=== PATIENT | male | born 1970 | race Caucasian/White ===

== ENCOUNTER → 2019-06-04 | Outpatient (CLI) | payer BC ==
--- NOTE | 2019-06-04 10:11 | CT ---
EXAMINATION TYPE: CT chest wo con DATE OF EXAM: 06/04/2019 COMPARISON: NONE HISTORY: Screen lung cancer, COPD, history of asbestos exposure. CT DLP: 693 mGycm. Automated Exposure Control for Dose Reduction was Utilized. TECHNIQUE: CT scan of the thorax is performed without IV contrast. FINDINGS: LUNGS: Mild to moderate biapical pleural/parenchymal scarring with occasional apical bleb. No suspici ous greater than 4 mm nodules or masses. Some patchy dependent atelectasis in the right lower lobe wi th 4 mm nodularity favoring atelectatic change axial image 58. There is no pleural effusion or pneumo thorax seen. Mild central peribronchial wall thickening presumed product of underlying emphysematous change. MEDIASTINUM: Lack of IV contrast is noted to limit evaluation for mediastinal and especially hilar ad enopathy. There are no definitive greater than 1 cm hilar or mediastinal lymph nodes. No cardiomega ly or pericardial effusion is seen. Ascending aorta measures up to 3.6 cm in diameter axial image 45. OTHER: Small degree of bilateral subareolar gynecomastia axial image 46. IMPRESSION: Mild emphysematous change without suspicious nodule or adenopathy.
== END | disposition home or self-care (01) ==
LOC: RADCTMAIN 08:25
PROVIDERS: ATTEND Family Medicine
DX: J43.9 Emphysema, unspecified (principal); F17.218 Nicotine dependence, cigarettes, with other nicotine-induced disorders
CPT/HCPCS: 71250

== ENCOUNTER 2020-06-16 12:16 | Observation (INO) | payer BC ==
[2020-06-16] MEDS ORDERED: ONDANSETRON 4 MG/2 ML VIAL IVP STA (12:38)
[2020-06-16] MEDS ORDERED: MORPHINE SULFATE 4 MG/ML SYRINGE IV STA (12:38)
[2020-06-16] MEDS ORDERED: SODIUM CHLORIDE 0.9% 1,000 ML IV STA ×2 (12:38)
[2020-06-16] MEDS ORDERED: PANTOPRAZOLE 40 MG/10 ML VIAL IVP STA (12:40)
--- NOTE | 2020-06-16 12:45 | ED ---
General Adult HPI - General Chief complaint: Nausea/Vomiting/Diarrhea Stated complaint: vomiting Time Seen by Provider: 06/16/20 12:26 Source: patient, RN notes reviewed, old records reviewed Mode of arrival: wheelchair Limitations: no limitations - History of Present Illness Initial comments: 49-year-old male presented for evaluation of nausea vomiting. Patient states his symptoms began within the past 24 hours. He felt that he may been a slightly undercooked pork chop. His did eat the same and has not experienced any symptoms. He has generalized abdominal pain. He said 5 episodes of vomiting. He has no chronic medical conditions and takes no daily medications. He denies dysuria or hematuria. He's had subjective fever and chills. He states that the vomiting has given him some chest pain. He denies previous history of CAD. Patient has not had a bowel movement and has not had any diarrhea. - Related Data Home Medications Medication Instructions Recorded Confirmed Acetaminophen Tab [Tylenol Tab] 1,000 mg PO Q6HR PRN 06/16/20 06/16/20 Allergies Allergy/AdvReac Type Severity Reaction Status Date / Time No Known Allergies Allergy Verified 06/16/20 12:58 Review of Systems ROS Statement: Those systems with pertinent positive or pertinent negative responses have been documented in the HPI. ROS Other: All systems not noted in ROS Statement are negative. Past Medical History Past Medical History: GERD/Reflux History of Any Multi-Drug Resistant Organisms: None Reported Past Surgical History: Hernia Repair Past Psychological History: No Psychological Hx Reported Smoking Status: Current every day smoker Past Alcohol Use History: Occasional Past Drug Use History: Marijuana General Exam Limitations: no limitations General appearance: alert, in distress Head exam: Present: atraumatic, normocephalic Eye exam: Present: normal appearance, PERRL ENT exam: Present: mucous membranes dry Respiratory exam: Present: respiratory distress (Tachypneic with good air entry) Cardiovascular Exam: Present: regular rate, normal rhythm GI/Abdominal exam: Present: soft, distended, tenderness. Absent: guarding, rebound, rigid Extremities exam: Present: normal inspection, normal capillary refill. Absent: pedal edema, calf tenderness Neurological exam: Present: alert, oriented X3, CN II-XII intact. Absent: motor sensory deficit Psychiatric exam: Present: anxious Skin exam: Present: warm, intact Course Vital Signs 06/16/20 06/16/20 12:19 14:46 Temperature 97.9 F 98.1 F Pulse Rate 86 58 L Respiratory 18 18 Rate Blood Pressure 123/75 167/77 O2 Sat by Pulse 99 98 Oximetry EKG Findings - EKG Comments: EKG Findings:: EKG: Sinus bradycardia with sinus arrhythmia, rate of 59, MD interval 154, QRS duration 80, QTC 390, no ST segment elevation Medical Decision Making - Medical Decision Making 49-year-old male presenting for evaluation of nausea vomiting, generalized abdominal pain. No diarrhea. Subjective fever and chills. Patient appears ill, he is tachypneic, profusely vomiting. Vital signs are stable. Workup is initiated, EKG showing sinus rhythm without ST segment elevation. Chest x-ray as well as KUB are negative for acute findings. CT of the abdomen shows a colitis with no other findings. Patient has a leukocytosis may be reactive secondary to vomiting, 15.9. His venous gas shows a CO2 of 39 which is normal. He has a mild lactic acid 2.3. He is given IV hydration. He has persistent nausea vomiting after initial treatment. He will be placed in observation for continued treatment. Case discussed with Dr. Tejada who will admit. Urinalysis pending. - Lab Data Result diagrams: 06/16/20 13:00 06/16/20 13:00 Lab Results 06/16/20 06/16/20 06/16/20 Range/Units 13:00 13:00 13:00 WBC 15.9 H (3.8-10.6) k/uL RBC 5.25 (4.30-5.90) m/uL Hgb 16.2 (13.0-17.5) gm/dL Hct 47.1 (39.0-53.0) % MCV 89.6 (80.0-100.0) fL MCH 30.8 (25.0-35.0) pg MCHC 34.4 (31.0-37.0) g/dL RDW 12.4 (11.5-15.5) % Plt Count 277 (150-450) k/uL MPV 7.6 Neutrophils % 89 % Lymphocytes % 7 % Monocytes % 3 % Eosinophils % 1 % Basophils % 0 % Neutrophils # 14.1 H (1.3-7.7) k/uL Lymphocytes # 1.1 (1.0-4.8) k/uL Monocytes # 0.5 (0-1.0) k/uL Eosinophils # 0.1 (0-0.7) k/uL Basophils # 0.0 (0-0.2) k/uL PT 10.4 (9.0-12.0) sec INR 1.0 (<1.2) APTT 23.8 (22.0-30.0) sec VBG pH (7.31-7.41) VBG pCO2 (37-51) mmHg VBG HCO3 (24-28) mmol/L Sodium 138 (137-145) mmol/L Potassium 3.9 (3.5-5.1) mmol/L Chloride 102 (98-107) mmol/L Carbon Dioxide 20 L (22-30) mmol/L Anion Gap 16 mmol/L BUN 13 (9-20) mg/dL Creatinine 0.82 (0.66-1.25) mg/dL Est GFR (CKD-EPI)AfAm >90 (>60 ml/min/1.73 sqM) Est GFR (CKD-EPI)NonAf >90 (>60 ml/min/1.73 sqM) Glucose 158 H (74-99) mg/dL Plasma Lactic Acid Adan (0.7-2.0) mmol/L Calcium 9.9 (8.4-10.2) mg/dL Magnesium 1.6 (1.6-2.3) mg/dL Total Bilirubin 1.1 (0.2-1.3) mg/dL AST 30 (17-59) U/L ALT 27 (4-49) U/L Alkaline Phosphatase 108 (38-126) U/L Troponin I (0.000-0.034) ng/mL Total Protein 8.3 H (6.3-8.2) g/dL Albumin 5.1 H (3.5-5.0) g/dL Amylase 72 (30-110) U/L Lipase 159 (23-300) U/L Acetone, Qual Negative (Negative) Coronavirus (PCR) (Not Detectd) Blood Type Blood Type Recheck Bld Type Recheck Status Antibody Screen Spec Expiration Date 06/16/20 06/16/20 06/16/20 Range/Units 13:00 13:00 13:00 WBC (3.8-10.6) k/uL RBC (4.30-5.90) m/uL Hgb (13.0-17.5) gm/dL Hct (39.0-53.0) % MCV (80.0-100.0) fL MCH (25.0-35.0) pg MCHC (31.0-37.0) g/dL RDW (11.5-15.5) % Plt Count (150-450) k/uL MPV Neutrophils % % Lymphocytes % % Monocytes % % Eosinophils % % Basophils % % Neutrophils # (1.3-7.7) k/uL Lymphocytes # (1.0-4.8) k/uL Monocytes # (0-1.0) k/uL Eosinophils # (0-0.7) k/uL Basophils # (0-0.2) k/uL PT (9.0-12.0) sec INR (<1.2) APTT (22.0-30.0) sec VBG pH (7.31-7.41) VBG pCO2 (37-51) mmHg VBG HCO3 (24-28) mmol/L Sodium (137-145) mmol/L Potassium (3.5-5.1) mmol/L Chloride (98-107) mmol/L Carbon Dioxide (22-30) mmol/L Anion Gap mmol/L BUN (9-20) mg/dL Creatinine (0.66-1.25) mg/dL Est GFR (CKD-EPI)AfAm (>60 ml/min/1.73 sqM) Est GFR (CKD-EPI)NonAf (>60 ml/min/1.73 sqM) Glucose (74-99) mg/dL Plasma Lactic Acid Adan 2.3 H* (0.7-2.0) mmol/L Calcium (8.4-10.2) mg/dL Magnesium (1.6-2.3) mg/dL Total Bilirubin (0.2-1.3) mg/dL AST (17-59) U/L ALT (4-49) U/L Alkaline Phosphatase (38-126) U/L Troponin I <0.012 (0.000-0.034) ng/mL Total Protein (6.3-8.2) g/dL Albumin (3.5-5.0) g/dL Amylase (30-110) U/L Lipase (23-300) U/L Acetone, Qual (Negative) Coronavirus (PCR) (Not Detectd) Blood Type B Positive Blood Type Recheck No Previous Record Bld Type Recheck Status CABO Indicated Antibody Screen NEGATIVE Spec Expiration Date 06/19/2020 - 229906/16/20 06/16/20 Range/Units 13:00 13:00 WBC (3.8-10.6) k/uL RBC (4.30-5.90) m/uL Hgb (13.0-17.5) gm/dL Hct (39.0-53.0) % MCV (80.0-100.0) fL MCH (25.0-35.0) pg MCHC (31.0-37.0) g/dL RDW (11.5-15.5) % Plt Count (150-450) k/uL MPV Neutrophils % % Lymphocytes % % Monocytes % % Eosinophils % % Basophils % % Neutrophils # (1.3-7.7) k/uL Lymphocytes # (1.0-4.8) k/uL Monocytes # (0-1.0) k/uL Eosinophils # (0-0.7) k/uL Basophils # (0-0.2) k/uL PT (9.0-12.0) sec INR (<1.2) APTT (22.0-30.0) sec VBG pH 7.36 (7.31-7.41) VBG pCO2 39 (37-51) mmHg VBG HCO3 22 L (24-28) mmol/L Sodium (137-145) mmol/L Potassium (3.5-5.1) mmol/L Chloride (98-107) mmol/L Carbon Dioxide (22-30) mmol/L Anion Gap mmol/L BUN (9-20) mg/dL Creatinine (0.66-1.25) mg/dL Est GFR (CKD-EPI)AfAm (>60 ml/min/1.73 sqM) Est GFR (CKD-EPI)NonAf (>60 ml/min/1.73 sqM) Glucose (74-99) mg/dL Plasma Lactic Acid Adan (0.7-2.0) mmol/L Calcium (8.4-10.2) mg/dL Magnesium (1.6-2.3) mg/dL Total Bilirubin (0.2-1.3) mg/dL AST (17-59) U/L ALT (4-49) U/L Alkaline Phosphatase (38-126) U/L Troponin I (0.000-0.034) ng/mL Total Protein (6.3-8.2) g/dL Albumin (3.5-5.0) g/dL Amylase (30-110) U/L Lipase (23-300) U/L Acetone, Qual (Negative) Coronavirus (PCR) Not Detected (Not Detectd) Blood Type Blood Type Recheck Bld Type Recheck Status Antibody Screen Spec Expiration Date Disposition Clinical Impression: Dehydration, Colitis, Intractable nausea and vomiting Disposition: ADMITTED IP TO THIS [facility] Condition: Stable Is patient prescribed a controlled substance at d/c from ED?: No Referrals: Cleveland Mercado DO [Primary Care Provider] - 1-2 days Decision to Admit Reason: Admit from EC Decision Date: 06/16/20 Decision Time: 14:51
[2020-06-16 13:16] LABS: Basophils % (A) 0 %; Eosinophils # (A) 0.1 k/uL (0-0.7); Eosinophils % (A) 1 %; HCT 47.1 % (39.0-53.0); HGB 16.2 gm/dL (13.0-17.5); Lymphocytes # (A) 1.1 k/uL (1.0-4.8); Lymphocytes % (A) 7 %; MCH 30.8 pg (25.0-35.0); MCHC 34.4 g/dL (31.0-37.0); MCV 89.6 fL (80.0-100.0); Mean Platelet Volume 7.6; Monocytes # (A) 0.5 k/uL (0-1.0); Monocytes % (A) 3 %; Neutrophils # (A) 14.1 k/uL (1.3-7.7); Neutrophils % (A) 89 %; Platelet Count 277 k/uL (150-450); RBC 5.25 m/uL (4.30-5.90); RDW 12.4 % (11.5-15.5); VBG PH 7.36 (7.31-7.41); WBC 15.9 k/uL (3.8-10.6)
[2020-06-16] MEDS ORDERED: MORPHINE SULFATE 4 MG/ML SYRINGE IVP STA (13:22)
[2020-06-16 13:29] LABS: ALT 27 U/L (4-49); AST 30 U/L (17-59); African American GFR (CKD) >90 (>60 ml/min/1.73 sqM); Albumin 5.1 g/dL (3.5-5.0); Alkaline Phosphatase 108 U/L (38-126); Amylase 72 U/L (30-110); Anion Gap 16 mmol/L; Blood Urea Nitrogen 13 mg/dL (9-20); Calcium 9.9 mg/dL (8.4-10.2); Carbon Dioxide 20 mmol/L (22-30); Chloride 102 mmol/L (98-107); Glucose 158 mg/dL (74-99); Lipase 159 U/L (23-300); Magnesium 1.6 mg/dL (1.6-2.3); Non-African American GFR(CKD) >90 (>60 ml/min/1.73 sqM); Partial Thromboplastin Time 23.8 sec (22.0-30.0); Potassium 3.9 mmol/L (3.5-5.1); Prothrombin Time 10.4 sec (9.0-12.0); Sodium 138 mmol/L (137-145); Total Bilirubin 1.1 mg/dL (0.2-1.3); Total Protein 8.3 g/dL (6.3-8.2)
--- NOTE | 2020-06-16 13:55 | XR ---
EXAMINATION TYPE: XR KUB DATE OF EXAM: 06/16/2020 COMPARISON: None HISTORY: Abdomen pain TECHNIQUE: Upright abdomen FINDINGS: No free air is evident. No differential air-fluid levels are evident. Normal colonic bowel gas is present. Psoas margins are normal. Organomegaly is not evident. No suspicious calcifications a re present. Scoliosis within the lumbar spine. IMPRESSION: 1. No acute abnormality
--- NOTE | 2020-06-16 13:58 | XR ---
EXAMINATION TYPE: XR chest 2V DATE OF EXAM: 06/16/2020 COMPARISON: None INDICATION: Difficulty breathing TECHNIQUE: Frontal and lateral views of the chest are obtained. FINDINGS: The heart size is normal. The pulmonary vasculature is normal. Minimal plate atelectasis at the left base. Lungs are otherwise clear. There is some hyperinflation p resent.. IMPRESSION: 1. Minimal plate atelectasis left base. 2. Hyperinflation
--- NOTE | 2020-06-16 14:06 | CT ---
EXAMINATION TYPE: CT abdomen pelvis w con DATE OF EXAM: 06/16/2020 COMPARISON: HISTORY: Upper abdominal pain with nausea CT DLP: 1098.1 mGycm CONTRAST: CT scan of the abdomen and pelvis is performed without Oral Contrast and with IV Contrast, patient in jected with 100 mL of Isovue 300. FINDINGS: LUNG BASES-: No visible nodule. No infiltrate. LIVER/GB: No calcified gallstones. No space occupying hepatic lesion. Biliary tree is of normal ca liber. PANCREAS: No inflammation. No distinct mass. SPLEEN: No splenic enlargement. No lesion seen. ADRENALS: No nodule. No thickening. KIDNEYS/BLADDER: No hydronephrosis. No nephrolithiasis. No distinct renal mass. Urinary bladder g rossly unremarkable. BOWEL: Previous appendectomy changes. There is wall thickening noted to involve the ascending colon w hich may reflect colitis which extends into the transverse colon. There is sigmoid diverticulosis wit hout diverticulitis. No evidence of bowel obstruction, free air or abscess. GENITAL ORGANS: No gross abnormality. LYMPH NODES: No greater than 1cm abdominal or pelvic lymph nodes are appreciated. AORTA: No significant abnormality. OSSEOUS STRUCTURES: No significant abnormality is seen. OTHER: No significant additional abnormality is seen. IMPRESSION: 1. Correlate for nonspecific colitis.
[2020-06-16 14:38] LABS: Appearance,Urine Clear (Clear); Bilirubin,Urine Negative (Negative); Blood,Urine Negative (Negative); Color,Urine Yellow; Glucose,Urine (UA) Negative (Negative); Ketones,Urine 3+ (Negative); Leukocyte Esterase,Urine Negative (Negative); Nitrite,Urine Negative (Negative); Protein,Urine Trace (Negative); Urobilinogen,Urine <2.0 mg/dL (<2.0)
[2020-06-16] MEDS ORDERED: NALOXONE 0.4 MG/ML 1 ML VIAL IV PRN (14:48)
[2020-06-16] MEDS: ONDANSETRON 4 MG/2 ML VIAL IVP PRN (16:11)
[2020-06-16] MEDS: ACETAMINOPHEN TAB 325 MG TAB PO PRN (16:17)
[2020-06-16] MEDS: MORPHINE SULFATE 4 MG/ML SYRINGE IV PRN (16:19)
--- NOTE | 2020-06-17 00:14 | P.HPIM ---
History of Present Illness H&P Date: 06/16/20 Chief Complaint: Nausea and vomiting. Patient is a 49-year-old male with a known history of GERD, currently everyday smoker and marijuana use presents to ER with complaints of abdominal pain and nausea and vomiting. Patient states that since last night patient has been havi ng nausea and episodes of vomiting x3 and could not sleep overnight. Patient also had episodes of vomiting this morning as well. Patient also had left upper quadrant pain. Patient states that he ate pork chop last night. His also did eat the same and has not experienced any symptoms. Denies any recent illnesses. No diarrhea. No fever no chills. No cough or sputum production. No headache or dizziness or lightheadedness. KUB x-ray showed no acute abnormality. Chest x-ray showed minimal plate atelectasis left base. Hyperinflation. CT of the abdomen pelvis showed correlate for nonspecific colitis. There is wall thickening noted to involve ascending colon which may reflect colitis which extends into transverse colon: There is sigmoid diverticulosis without diverticulitis. No evidence of bowel obstruction, free air or abscess noted. Patient states that he did have his appropriate cancer screening with colonoscopy done few months ago was noted to be normal. Laboratory test showed WBC 15.9, hemoglobin 16.2 and platelets 277 Sodium 138 potassium 3.9 chloride 102 bicarb is 20 BUN 13 and creatinine 0.82 lactic acid level is 2.3 Amylase 72 and lipase 159 urinalysis showed 3+ ketones and increased specific gravity Acetone negative COVID-19 PCR not detected Review of Systems Constitutional: Patient denies any fever or chills . No generalized weakness or weight loss. Abdomen: Patient does have nausea vomiting and abdominal pain. No diarrhea.. Cardiovascular: Patient denies any chest pain or short of breath no palpita tions. Respiratory: patient denied any cough or sputum production. No shortness of breath Neurologic: Patient denied any numbness or tingling headache. Musculoskeletal: Patient denies any complaints of joint swelling or deformity. Skin: Negative Psychiatric: Negative Endocrine: No heat or cold intolerance. No recent weight gain. Genitourinary: No dysuria or hematuria. All other 14 point ROS negative except the above Past Medical History Past Medical History: GERD/Reflux History of Any Multi-Drug Resistant Organisms: None Reported Past Surgical History: Hernia Repair Past Psychological History: No Psychological Hx Reported Smoking Status: Current every day smoker Past Alcohol Use History: Occasional Past Drug Use History: Marijuana Medications and Allergies Home Medications Medication Instructions Recorded Confirmed Type Acetaminophen Tab [Tylenol Tab] 1,000 mg PO Q6HR PRN 06/16/20 06/16/20 History Allergies Allergy/AdvReac Type Severity Reaction Status Date / Time No Known Allergies Allergy Verified 06/16/20 12:58 Physical Exam Vitals: Vital Signs Temp Pulse Pulse Resp BP BP Pulse Ox 06/16/20 22:49 98.4 F 74 16 117/64 06/16/20 20:12 82 16 115/67 98 06/16/20 16:07 60 18 144/78 98 06/16/20 14:46 98.1 F 58 L 18 167/77 98 06/16/20 12:19 97.9 F 86 18 123/75 99 Intake and Output 06/16/20 06/16/20 06/17/20 14:59 22:59 06:59 Other: Weight 117.934 kg 117.934 kg PHYSICAL EXAMINATION: Patient is lying in the bed comfortably, no acute distress, awake alert and oriented.. HEENT: Normocephalic. Neck is supple. Pupils reactive. Nostrils clear. Oral cavity is moist. Ears reveal no drainage. Neck reveals no JVD, carotid bruits, or thyromegaly. CHEST EXAMINATION: Trachea is central. Symmetrical expansion. Lung bar clear to auscultation and percussion. CARDIAC: Normal S1, S2 with no gallops. No murmurs ABDOMEN: Soft. Mild diffuse abdominal tenderness. No guarding or rigidity. Bowel sounds normal. No organomegaly. No abdominal bruits. Extremities: reveal no edema. No clubbing or cyanosis Neurologically awake, alert, oriented x3 with well-coordinated movements. No focal deficits noted Skin: No rash or skin lesions. Psychiatric: Coperative. Nonsuicidal Musculoskeletal: No joint swelling or deformity. Normal range of motion. Results CBC & Chem 7: 06/16/20 13:00 06/16/20 13:00 Labs: Abnormal Lab Results - Last 24 Hours (Table) 06/16/20 06/16/20 06/16/20 Range/Units 13:00 13:00 13:00 WBC 15.9 H (3.8-10.6) k/uL Neutrophils # 14.1 H (1.3-7.7) k/uL VBG HCO3 (24-28) mmol/L Carbon Dioxide 20 L (22-30) mmol/L Glucose 158 H (74-99) mg/dL Plasma Lactic Acid Adan (0.7-2.0) mmol/L Total Protein 8.3 H (6.3-8.2) g/dL Albumin 5.1 H (3.5-5.0) g/dL Ur Specific [place] 1.050 H (1.001-1.035) Urine Protein Trace H (Negative) Urine Ketones 3+ H (Negative) 06/16/20 06/16/20 Range/Units 13:00 13:00 WBC (3.8-10.6) k/uL Neutrophils # (1.3-7.7) k/uL VBG HCO3 22 L (24-28) mmol/L Carbon Dioxide (22-30) mmol/L Glucose (74-99) mg/dL Plasma Lactic Acid Adan 2.3 H* (0.7-2.0) mmol/L Total Protein (6.3-8.2) g/dL Albumin (3.5-5.0) g/dL Ur Specific [place] (1.001-1.035) Urine Protein (Negative) Urine Ketones (Negative) Thrombosis Risk Factor Assmnt - DVT/VTE Prophylaxis DVT/VTE Prophylaxis: Pharmacologic Prophylaxis ordered - Choose All That Apply Any of the Below Risk Factors Present?: Yes Each Factor Represents 1 point: Age 41-60 years Other Risk Factors: No Other congenital or acquired thrombophilia - If yes, enter type in comment: No Thrombosis Risk Factor Assessment Total Risk Factor Score: 1 Thrombosis Risk Factor Assessment Level: Low Risk Assessment and Plan Assessment: Intractable nausea and vomiting due to ascending and transverse colitis. Leukocytosis 15.9 likely due to colitis versus reactive Sigmoid diverticulosis without history of diverticulitis Mild anion gap metabolic acidosis secondary to dehydration/lactic acidosis GERD Currently everyday smoker and occasional marijuana use DVT prophylaxis with heparin subcu Plan: Patient will be continued on IV hydration with normal saline and symptomatic management for nausea and vomiting. Pain management with IV morphine and nothing by mouth until symptomatic improvement. Continue with GI and DVT prophylaxis. Monitor CBC and BMP tomorrow. No diarrhea currently. Further recommendations based on clinical course. Time with Patient: Greater than 30
[2020-06-17] MEDS ORDERED: SODIUM CHLORIDE 0.9% 1,000 ML IV SCH (00:15)
[2020-06-17] MEDS: MORPHINE SULFATE 4 MG/ML SYRINGE IV PRN (05:51)
[2020-06-17] MEDS: ONDANSETRON 4 MG/2 ML VIAL IVP PRN (05:51)
[2020-06-17 07:47] VITALS: BP 130/77; PULSE 58; RESP 16; TEMP 98
[2020-06-17] MEDS ORDERED: HEPARIN SODIUM,PORCINE 5,000 UNIT/ML 1 ML VIAL SQ SCH (08:00)
[2020-06-17] MEDS ORDERED: PANTOPRAZOLE 40 MG/10 ML VIAL IV SCH (09:00)
[2020-06-17 09:17] LABS: Basophils # (A) 0.06 X 10*3/uL (0.00-0.10); Basophils % (A) 0.6 %; Eosinophils % (A) 0.9 %; HCT 39.9 % (39.6-50.0); HGB 13.6 g/dL (13.0-17.0); Lymphocytes # (A) 2.67 X 10*3/uL (0.90-5.00); Lymphocytes % (A) 24.9 %; MCH 30.4 pg (27.0-32.0); MCHC 34.1 g/dL (32.0-37.0); MCV 89.3 fL (80.0-97.0); Mean Platelet Volume 10.3 fL (9.5-12.2); Monocytes # (A) 0.78 X 10*3/uL (0.20-1.00); Monocytes % (A) 7.3 %; Platelet Count 241 X 10*3/uL (140-440); RBC 4.47 X 10*6/uL (4.40-5.60); RDW 12.7 % (11.5-14.5); WBC 10.74 X 10*3/uL (4.50-10.00)
[2020-06-17] MEDS: ACETAMINOPHEN TAB 325 MG TAB PO PRN (09:48)
[2020-06-17 11:05] LABS: African American GFR (CKD) 119.9 (60.0-200.0); Albumin/Globulin Ratio 2.67 (1.60-3.17); Anion Gap 7.7 mmol/L (4.00-12.00); BUN/Creat Ratio 13.75 Ratio (12.00-20.00); Calcium 8.1 mg/dL (8.7-10.3); Carbon Dioxide 24.3 mmol/L (21.6-31.8); Globulin 1.5 g/dL (1.6-3.3); Magnesium 1.6 mg/dL (1.5-2.4); Non-African American GFR(CKD) 103.4 (60.0-200.0); Potassium 3.8 mmol/L (3.5-5.5); Total Bilirubin 0.7 mg/dL (0.2-1.2); Total Protein 5.5 g/dL (6.2-8.2)
--- NOTE | 2020-06-17 15:32 | P.DS ---
Providers Date of admission: 06/16/20 14:48 Expected date of discharge: 06/17/20 Attending physician: Pernell Tejada Primary care physician: Cleveland Mercado Hospital Course: Final diagnosis Intractable nausea and vomiting due to ascending and transverse colitis. Leukocytosis 15.9 likely due to colitis versus reactive Sigmoid diverticulosis without history of diverticulitis Mild anion gap metabolic acidosis secondary to dehydration/lactic acidosis, improved GERD Currently everyday smoker and occasional marijuana use DVT prophylaxis Full code Discharge disposition Patient is being discharged in a stable condition with guarded prognosis to home. Patient will follow-up with Dr. Mercado in the outpatient setting upon discharge. Patient will continue with Protonix daily upon discharge. Patient also instructed to and tenuous clear and full liquids and advance slowly as tolerated over the next few days. Total time taken is greater than 35 minutes. Hospital course Patient is a 49-year-old male with a known history of GERD, currently everyday smoker and marijuana use presents to ER with complaints of abdominal pain and nausea and vomiting. Patient states that since last night patient has been having nausea and episodes of vomiting x3 and could not sleep overnight. Patient also had episodes of vomiting this morning as well. Patient also had left upper quadrant pain. Patient states that he ate pork chop last night. His also did eat the same and has not experienced any symptoms. Denies any recent illnesses. No diarrhea. No fever no chills. No cough or sputum production. No headache or dizziness or lightheadedness. KUB x-ray showed no acute abnormality. Chest x-ray showed minimal plate atelectasis left base. Hyperinflation. CT of the abdomen pelvis showed correlate for nonspecific colitis. There is wall thickening noted to involve ascending colon which may reflect colitis which extends into transverse colon: There is sigmoid diverticulosis without diverticulitis. No evidence of bowel obstruction, free air or abscess noted. Patient states that he did have his appropriate cancer screening with colonoscopy done few months ago was noted to be normal. Laboratory test showed WBC 15.9, hemoglobin 16.2 and platelets 277 Sodium 138 potassium 3.9 chloride 102 bicarb is 20 BUN 13 and creatinine 0.82 lactic acid level is 2.3 Amylase 72 and lipase 159 urinalysis showed 3+ ketones and increased specific gravity Acetone negative COVID-19 PCR not detected 06/17/2020 Patient is seen and evaluated this morning and follow-up in is alert and oriented 3. Patient is tolerating diet with no reports of nausea noted. Patient states he continues to have left flank discomfort that radiates to the front although has improved since yesterday. Patient is tolerating diet and would like to go home today. Instructed the patient to continue with clear and full liquids this evening and slowly advance as tolerated. Patient instructed to follow-up with primary care provider at the beginning of the week. White blood count trending down and 10.74. Lactic acid improved and basic metabolic panel within normal limits. Currently no reports of chest pain, shortness of breath, or palpitations. Patient is afebrile. No reports of nausea or vomiting and patient is tolerating diet. Patient will be discharged home today. On exam vital signs are stable. Temp is 98.0F, pulse is 58, respirations are 16, blood pressure is 130/77, oxygen saturation is 99% on room air. Cardio S1, S2 are muffled. Respiratory system shows diminished breath sounds at the bases with no wheezing or rhonchi noted. Abdomen is soft and nontender. Nervous system shows no focal deficits. Please refer to medication reconciliation sheet for a list of medications. Patient Condition at Discharge: Stable Plan - Discharge Summary Discharge Rx Participant: Yes New Discharge Prescriptions: New Pantoprazole Sodium [Protonix] 40 mg PO DAILY #30 tablet. Continue Acetaminophen Tab [Tylenol] 1,000 mg PO Q6HR PRN PRN Reason: Pain Discharge Medication List Acetaminophen Tab [Tylenol] 1,000 mg PO Q6HR PRN 06/16/20 [History] Pantoprazole Sodium [Protonix] 40 mg PO DAILY #30 tablet. 06/17/20 [Rx] Follow up Appointment(s)/Referral(s): Cleveland Mercado DO [Primary Care Provider] - 1-2 days Activity/Diet/Wound Care/Special Instructions: activity limited until follow up follow up with primary care provider upon discharge continue with clear and full liquids today and slowly advance as tolerated Discharge Disposition: HOME SELF-CARE
== END 2020-06-17 12:32 | disposition home or self-care (01) ==
LOC: EC 12:16 → 6NMEDSUR 14:48
PROVIDERS: ADMIT Internal Medicine; ATTEND Internal Medicine
DX: K52.9 Noninfective gastroenteritis and colitis, unspecified (principal); E86.0 Dehydration; E87.2 Acidosis; K21.9 Gastro-esophageal reflux disease without esophagitis; K57.30 Diverticulosis of large intestine without perforation or abscess without bleeding; F17.200 Nicotine dependence, unspecified, uncomplicated; F12.90 Cannabis use, unspecified, uncomplicated; Z98.890 Other specified postprocedural states; Z20.828 Contact with and (suspected) exposure to other viral communicable diseases
CPT/HCPCS: 96376 ×2; 96372; 96361; 96374; 96375; 99285; 36415; 93005; 86900; 86901; 80053 ×2; 82150; 82803; 82009; 83605; 83690; 83735 ×2; 84484; 85025 ×2; 85610; 85730; 86850; 81003; 87635; 71046; 74018; 74177; G0378 ×2; J2270 ×2; J1644; J2405 ×2; C9113 ×2; Q9967

== ENCOUNTER 2020-06-18 01:54 | Emergency (ER) | payer BC ==
[2020-06-18 02:02] VITALS: BP 142/87; PULSE 91; RESP 26; TEMP 98.4
[2020-06-18] MEDS ORDERED: ONDANSETRON 4 MG/2 ML VIAL IVP STA (02:10)
[2020-06-18] MEDS ORDERED: SODIUM CHLORIDE 0.9% 500 ML 500 ML IV STA (02:10)
[2020-06-18] MEDS ORDERED: SODIUM CHLORIDE 0.9% 1,000 ML IV STA ×2 (02:10)
[2020-06-18] MEDS ORDERED: PANTOPRAZOLE 40 MG/10 ML VIAL IVP STA (02:11)
--- NOTE | 2020-06-18 02:16 | ED ---
Recheck HPI - General Chief Complaint: Abdominal Pain Stated Complaint: Abdominal Pain Time Seen by Provider: 06/18/20 02:01 Source: patient, RN notes reviewed, old records reviewed Mode of arrival: ambulatory Limitations: no limitations - History of Present Illness Initial Comments: This is a 49-year-old male to the ER for evaluation patient presents today for recurrence of abdominal pain persistent nausea vomiting. Recent ER visit earlier today. Patient is a poor strain secondary to not wanting to actively participate history taking a lot of states his symptoms have been worse and progressing. Patient does believe patient does believe its recurrence and persistent colitis dehydration weakness. Complaint: other (Recheck of persistent nausea vomiting and diarrhea) -: days(s) Returns Today for: other (Patient symptoms have been persistent) Symptoms Since Prior Visit: no new symptoms Context: other (Patient concerned that symptoms have been persistent) Associated Symptoms: none Treatments Prior to Arrival: other medications, Given Pain Meds on - Related Data Home Medications Medication Instructions Recorded Confirmed Acetaminophen Tab [Tylenol] 1,000 mg PO Q6HR PRN 06/16/20 06/16/20 Previous Rx's Medication Instructions Recorded Pantoprazole Sodium [Protonix] 40 mg PO DAILY #30 tablet. 06/17/20 Allergies Allergy/AdvReac Type Severity Reaction Status Date / Time No Known Allergies Allergy Verified 06/18/20 02:02 Review of Systems ROS Statement: Those systems with pertinent positive or pertinent negative responses have been documented in the HPI. ROS Other: All systems not noted in ROS Statement are negative. Past Medical History Past Medical History: GERD/Reflux Additional Past Medical History / Comment(s): Colitis History of Any Multi-Drug Resistant Organisms: None Reported Past Surgical History: Hernia Repair Past Psychological History: No Psychological Hx Reported Smoking Status: Current every day smoker Past Alcohol Use History: Occasional Past Drug Use History: Marijuana General Exam Limitations: no limitations Course Vital Signs 06/18/20 01:58 Temperature 98.4 F Pulse Rate 91 Respiratory 26 H Rate Blood Pressure 142/87 O2 Sat by Pulse 100 Oximetry - Reevaluation(s) Reevaluation #1: 06/18/20 02:03 Prior and during evaluation here in the emergency department patient became hostile and belligerent, patient wanted no further evaluation, no further imaging, no further testing. Patient was of relatively sane mind and able to make his own medical decisions. Patient was allowed to leave without finishing his evaluation Medical Decision Making - Medical Decision Making 49 male who presented for recurrence and persistent colitis. During initial evaluation before completion of evaluation patient refuses testing refused imaging refuses exam. Patient did have blood work sent prior to being angry, and being upset with how his visit was going, patient again was alert and oriented allowed to leave - Lab Data Result diagrams: 06/18/20 02:16 06/18/20 02:16 Lab Results 06/18/20 06/18/20 06/18/20 Range/Units 02:16 02:16 02:16 WBC 14.2 H (3.8-10.6) k/uL RBC 5.45 (4.30-5.90) m/uL Hgb 16.6 (13.0-17.5) gm/dL Hct 49.7 (39.0-53.0) % MCV 91.2 (80.0-100.0) fL MCH 30.3 (25.0-35.0) pg MCHC 33.3 (31.0-37.0) g/dL RDW 12.9 (11.5-15.5) % Plt Count 306 (150-450) k/uL MPV 7.5 Neutrophils % 69 % Lymphocytes % 23 % Monocytes % 5 % Eosinophils % 2 % Basophils % 1 % Neutrophils # 9.7 H (1.3-7.7) k/uL Lymphocytes # 3.2 (1.0-4.8) k/uL Monocytes # 0.8 (0-1.0) k/uL Eosinophils # 0.3 (0-0.7) k/uL Basophils # 0.1 (0-0.2) k/uL Sodium 138 (137-145) mmol/L Potassium 3.4 L (3.5-5.1) mmol/L Chloride 102 (98-107) mmol/L Carbon Dioxide 23 (22-30) mmol/L Anion Gap 13 mmol/L BUN 12 (9-20) mg/dL Creatinine 0.97 (0.66-1.25) mg/dL Est GFR (CKD-EPI)AfAm >90 (>60 ml/min/1.73 sqM) Est GFR (CKD-EPI)NonAf >90 (>60 ml/min/1.73 sqM) Glucose 133 H (74-99) mg/dL Lactic Ac Sepsis Rflx Plasma Lactic Acid Adan 5.4 H* (0.7-2.0) mmol/L Calcium 9.3 (8.4-10.2) mg/dL Phosphorus 2.3 L (2.5-4.5) mg/dL Magnesium 1.8 (1.6-2.3) mg/dL Total Bilirubin 0.9 (0.2-1.3) mg/dL AST 26 (17-59) U/L ALT 21 (4-49) U/L Alkaline Phosphatase 84 (38-126) U/L Creatine Kinase 227 H (55-170) U/L CK-MB (CK-2) (0.0-2.4) ng/mL Troponin I (0.000-0.034) ng/mL Total Protein 7.8 (6.3-8.2) g/dL Albumin 4.7 (3.5-5.0) g/dL 06/18/20 06/18/20 Range/Units 02:16 02:59 WBC (3.8-10.6) k/uL RBC (4.30-5.90) m/uL Hgb (13.0-17.5) gm/dL Hct (39.0-53.0) % MCV (80.0-100.0) fL MCH (25.0-35.0) pg MCHC (31.0-37.0) g/dL RDW (11.5-15.5) % Plt Count (150-450) k/uL MPV Neutrophils % % Lymphocytes % % Monocytes % % Eosinophils % % Basophils % % Neutrophils # (1.3-7.7) k/uL Lymphocytes # (1.0-4.8) k/uL Monocytes # (0-1.0) k/uL Eosinophils # (0-0.7) k/uL Basophils # (0-0.2) k/uL Sodium (137-145) mmol/L Potassium (3.5-5.1) mmol/L Chloride (98-107) mmol/L Carbon Dioxide (22-30) mmol/L Anion Gap mmol/L BUN (9-20) mg/dL Creatinine (0.66-1.25) mg/dL Est GFR (CKD-EPI)AfAm (>60 ml/min/1.73 sqM) Est GFR (CKD-EPI)NonAf (>60 ml/min/1.73 sqM) Glucose (74-99) mg/dL Lactic Ac Sepsis Rflx Y Plasma Lactic Acid Adan (0.7-2.0) mmol/L Calcium (8.4-10.2) mg/dL Phosphorus (2.5-4.5) mg/dL Magnesium (1.6-2.3) mg/dL Total Bilirubin (0.2-1.3) mg/dL AST (17-59) U/L ALT (4-49) U/L Alkaline Phosphatase (38-126) U/L Creatine Kinase (55-170) U/L CK-MB (CK-2) 2.3 (0.0-2.4) ng/mL Troponin I <0.012 (0.000-0.034) ng/mL Total Protein (6.3-8.2) g/dL Albumin (3.5-5.0) g/dL Disposition Clinical Impression: Abdominal pain Narrative: Patient Left hospital prior ro finishing evaluation and treatment Disposition: Left Against Medical Advice Instructions (If sedation given, give patient instructions): Abdominal Pain (ED) Is patient prescribed a controlled substance at d/c from ED?: No Referrals: Cleveland Mercado DO [Primary Care Provider] - 1-2 days
[2020-06-18 02:36] LABS: Basophils # (A) 0.1 k/uL (0-0.2); Basophils % (A) 1 %; Eosinophils # (A) 0.3 k/uL (0-0.7); Eosinophils % (A) 2 %; HCT 49.7 % (39.0-53.0); HGB 16.6 gm/dL (13.0-17.5); Lymphocytes # (A) 3.2 k/uL (1.0-4.8); Lymphocytes % (A) 23 %; MCH 30.3 pg (25.0-35.0); MCHC 33.3 g/dL (31.0-37.0); MCV 91.2 fL (80.0-100.0); Mean Platelet Volume 7.5; Monocytes # (A) 0.8 k/uL (0-1.0); Monocytes % (A) 5 %; Neutrophils # (A) 9.7 k/uL (1.3-7.7); Neutrophils % (A) 69 %; Platelet Count 306 k/uL (150-450); RBC 5.45 m/uL (4.30-5.90); RDW 12.9 % (11.5-15.5); WBC 14.2 k/uL (3.8-10.6)
[2020-06-18 02:44] LABS: ALT 21 U/L (4-49); AST 26 U/L (17-59); African American GFR (CKD) >90 (>60 ml/min/1.73 sqM); Albumin 4.7 g/dL (3.5-5.0); Alkaline Phosphatase 84 U/L (38-126); Anion Gap 13 mmol/L; Blood Urea Nitrogen 12 mg/dL (9-20); Calcium 9.3 mg/dL (8.4-10.2); Carbon Dioxide 23 mmol/L (22-30); Chloride 102 mmol/L (98-107); Creatine Kinase 227 U/L (55-170); Glucose 133 mg/dL (74-99); Magnesium 1.8 mg/dL (1.6-2.3); Non-African American GFR(CKD) >90 (>60 ml/min/1.73 sqM); Phosphorus 2.3 mg/dL (2.5-4.5); Potassium 3.4 mmol/L (3.5-5.1); Sodium 138 mmol/L (137-145); Total Bilirubin 0.9 mg/dL (0.2-1.3); Total Protein 7.8 g/dL (6.3-8.2)
--- NOTE | 2020-06-18 02:44 | XR ---
EXAM: XR Chest, 2 Views CLINICAL HISTORY: ITS.REASON XR Reason: Weakness TECHNIQUE: Frontal and lateral views of the chest. COMPARISON: 06/04/2019 FINDINGS: Lungs: No consolidation or mass. Pleural space: No effusion. Heart: No cardiomegaly. Bones/joints: No acute findings. IMPRESSION: No acute cardiopulmonary process.
[2020-06-18 03:08] LABS: Creatine Kinase MB 2.3 ng/mL (0.0-2.4); Troponin I <0.012 ng/mL (0.000-0.034)
== END 2020-06-18 02:45 | disposition left against medical advice (07) ==
LOC: EC 01:54
DX: R10.9 Unspecified abdominal pain (principal); F17.200 Nicotine dependence, unspecified, uncomplicated; Z53.29 Procedure and treatment not carried out because of patient's decision for other reasons
CPT/HCPCS: 36415; 80053; 82550; 82553; 83605; 83735; 84100; 84484; 85025; 71046; 99284; 96374; 96375; J2405; C9113